=== PATIENT | male | born 1955 | race Caucasian/White ===

== ENCOUNTER 2022-03-18 06:06 | Day surgery (SDC) | payer MEDICARE, OTHER ==
[2022-03-18] MEDS ORDERED: Lactated Ringers 1,000 ML IV SCH (06:30)
[2022-03-18] MEDS ORDERED: Lactated Ringers 1,000 ML IV ONE (06:45)
[2022-03-18] MEDS ORDERED: Xylocaine-Mpf 2% 5 Ml Vial ONE (07:51)
[2022-03-18] MEDS ORDERED: Versed 2 MG/2 ML Injection ONE (07:51)
[2022-03-18] MEDS ORDERED: DIPRIVAN 200 MG/20 ML IV ONE (07:51)
[2022-03-18] MEDS ORDERED: Ephedrine Sulfate 50 MG/ML ONE ×2 (08:19→08:21)
--- NOTE | 2022-03-18 08:50 | OP ---
SURGERY DATE/TIME: 03/18/2022 0800 PREOPERATIVE DIAGNOSIS: Screening colonoscopy. POSTOPERATIVE DIAGNOSES: 1) Ascending colon polyp. 2) Diverticulosis. PROCEDURE: Colonoscopy. SURGEON: Ronn Isidro M.D. ANESTHESIA: MAC by Matthew Dominguez CRNA. ESTIMATED BLOOD LOSS: Minimal. SPECIMENS: Hot forceps polypectomy from ascending colon. DESCRIPTION OF PROCEDURE: After informed written consent was obtained, the patient was taken to the endoscopy suite. He was placed in left lateral decubitus position. Anesthesia was titrated to the desired level of consciousness. Digital rectal exam showed normal sphincter tone and no internal lesions. The scope was inserted into the rectum and sequentially the entire colonic mucosa was traversed. The level of cecum was reached and verified with direct visualization of the ileocecal valve. Upon withdrawal careful mucosal inspection revealed no gross abnormalities other than a small sessile polyp on a fold in the ascending colon this is grasped with the forceps cauterized and removed in its entirety. Two separate pieces were removed and sent for pathology testing. Upon further withdraw, there were a few scattered diverticula but no other mucosal abnormalities. Prior to withdrawal retroflexion showed no internal lesions. The scope was removed and the patient was transferred to the recovery room in good condition.
[2022-03-18 09:30] VITALS: BP 126/74; PULSE 63; O2SAT 94
== END 2022-03-18 09:32 | disposition home or self-care (01) ==
LOC: SDC 06:06
PROVIDERS: ATTEND Family Medicine
DX: Z12.11 Encounter for screening for malignant neoplasm of colon (principal); D12.2 Benign neoplasm of ascending colon; K57.30 Diverticulosis of large intestine without perforation or abscess without bleeding
CPT/HCPCS: J2250; J2704

== ENCOUNTER 2022-09-21 20:14 | Emergency (ER) | payer MEDICARE, OTHER ==
--- NOTE | 2022-09-21 20:39 | ERPHSYRPT ---
- History of Present Illness Time Seen by Provider: 09/21/22 20:35 Historian: patient Exam Limitations: no limitations Patient Subjective Stated Complaint: pt to ER with complaints of abdominal pain x 3 days. states he also thinks he has blood in his urine because his urine is an "orange" color. Triage Nursing Assessment: pt ambulatory to ER for abdominal pain. pt states he has had it for 3 days. pt with dry heaving and diarrhea. pt states its lower abdomen. denies urinary issues. pt last BM yesterday. pt A&Ox4. Physician History: This is a 67-year-old white male whose had history of appendectomy in the past, cholecystectomy and a gastric bypass procedure. He presents with worsening suprapubic abdominal pain the last 3 days. He has had associated intermittent vomiting as well as dry heaves and diarrhea. Patient has a history of gastroesophageal reflux disease. He denies chest pain. He denies shortness of breath. Timing/Duration: day(s), worse Activities at Onset: none Quality: sharpness, stabbing Abdominal Pain Onset Location: suprapubic Pain Radiation: no radiation Severity of Pain-Max: moderate Severity of Pain-Current: moderate Modifying Factors: Improves With: vomiting, other (Diarrhea) Associated Symptoms: diarrhea, fever/chills, loss of appetite, nausea, vomiting, No chest pain, No shortness of breath Previous symptoms: no prior history Allergies/Adverse Reactions: No Known Drug Allergies Allergy (Verified 09/21/22 20:35) Home Medications: PANTOPRAZOLE 40 mg Tablet [Protonix 40MG Tablet] 40 mg PO QAM 03/04/22 [History] Pramipexole Di-HCl 0.5 mg [Mirapex 0.5 MG Tablet] 0.5 mg PO HS 03/04/22 [History] Hx Tetanus, Diphtheria Vaccination/Date Given: Yes Hx Influenza Vaccination/Date Given: Yes Hx Pneumococcal Vaccination/Date Given: Yes Immunizations Up to Date: Yes Travel Risk - International Travel Have you traveled outside of the country in past 3 weeks: No - Coronavirus Screening Are you exhibiting any of the following symptoms?: Yes Symptoms: Vomiting/Diarrhea Close contact with a COVID-19 positive Pt in past 14-21 Days: No - Vaccine Status Have you recieved a Covid-19 vaccination: Yes Host Hostess: Moderna - Vaccination Dates Date of 2cond Vaccination (if applicable): unk - Review of Systems Constitutional: No Symptoms Eyes: No Symptoms Ears, Nose, & Throat: No Symptoms Respiratory: No Symptoms Cardiac: No Symptoms Abdominal/Gastrointestinal: Abdominal Pain, Nausea, Vomiting, Diarrhea, Appetite Changes, No Constipation Genitourinary Symptoms: No Symptoms Musculoskeletal: No Symptoms Skin: No Symptoms Neurological: No Symptoms Psychological: No Symptoms Endocrine: No Symptoms Hematologic/Lymphatic: No Symptoms Immunological/Allergic: No Symptoms All Other Systems: Reviewed and Negative - Past Medical History Pertinent Past Medical History: Yes Neurological History: No Pertinent History ENT History: No Pertinent History Cardiac History: No Pertinent History Respiratory History: No Pertinent History Endocrine Medical History: No Pertinent History Musculoskeletal History: No Pertinent History GI Medical History: GERD, Gallbladder Disease, Other History: No Pertinent History Psycho-Social History: No Pertinent History Male Reproductive Disorders: No Pertinent History - Past Surgical History Past Surgical History: Yes Neuro Surgical History: No Pertinent History Cardiac: No Pertinent History Respiratory: No Pertinent History Gastrointestinal: Appendectomy, Cholecystectomy, Other Genitourinary: No Pertinent History Musculoskeletal: Orthopedic Surgery Male Surgical History: No Pertinent History Other Surgical History: L foot arthrodesis, gastric bypass, hammertoe surgery L foot, - Social History Smoking Status: Light tobacco smoker How long have you smoked: cigar Exposure to second hand smoke: Yes Drug Use: none - Nursing Vital Signs Nursing Vital Signs: Initial Vital Signs Temperature 98.6 F 09/21/22 20:26 Pulse Rate 81 09/21/22 20:26 Respiratory Rate 18 09/21/22 20:26 Blood Pressure 140/76 09/21/22 20:26 O2 Sat by Pulse Oximetry 97 09/21/22 20:26 Pain Scale Pain Intensity 8 - Physical Exam General Appearance: mild distress, alert, anxiety Eye Exam: PERRL/EOMI, eyes nml inspection Ears, Nose, Throat Exam: normal ENT inspection, moist mucous membranes Neck Exam: normal inspection, non-tender, supple, full range of motion Respiratory Exam: normal breath sounds, lungs clear, airway intact, No chest tenderness, No respiratory distress Cardiovascular Exam: regular rate/rhythm, normal heart sounds, normal peripheral pulses Gastrointestinal/Abdomen Exam: soft, normal bowel sounds, tenderness (Prepubic region), guarding (Suprapubic region to palpation), rebound (Prepubic region to palpation) Back Exam: normal inspection, normal range of motion, No CVA tenderness, No ve rtebral tenderness Extremity Exam: normal inspection, normal range of motion, pelvis stable Neurologic Exam: alert, oriented x 3, cooperative, personnel specialist II-XII nml as tested, normal mood/affect, nml cerebellar function, nml station & gait, sensation nml Skin Exam: normal color, warm, dry Lymphatic Exam: No adenopathy SpO2 Interpretation: normal SpO2: 97 O2 Delivery: Room Air - Course Nursing assessment & vital signs reviewed: Yes Ordered Tests: Active Orders 24 hr Category Date Time Status IV Insertion STAT Care 09/21/22 20:47 Active ABDOMEN AND PELVIS W/0 CONTRAS [CT] Stat Exams 09/21/22 20:47 Taken AMYLASE Stat Lab 09/21/22 20:55 Completed CBC W DIFF Stat Lab 09/21/22 20:55 Completed CMP Stat Lab 09/21/22 20:55 Completed CULTURE,URINE Stat Lab 09/21/22 20:50 Received LIPASE Stat Lab 09/21/22 20:55 Completed Lactic Acid Stat Lab 09/21/22 20:47 Completed UA W/RFX UR CULTURE Stat Lab 09/21/22 20:50 Completed Medication Summary Generic Name Dose Route Start Last Admin Trade Name Freq PRN Reason Stop Dose Admin Levofloxacin/Dextrose 500 mg in 100 mls @ 100 mls/hr 09/21/22 22:22 Levofloxacin 500mg/100ml D5w IV 09/21/22 23:21 STAT STA Metronidazole 500 mg in 100 mls @ 200 mls/hr 09/21/22 22:23 Flagyl 500 Mg Ivpb IV 09/21/22 22:52 STAT STA Sodium Chloride 1,000 mls @ 999 mls/hr 09/21/22 22:24 Sodium Chloride 0.9% 1000 Ml IV 09/21/22 23:24 .Q1H1M STA Discontinued Medications Generic Name Dose Route Start Last Admin Trade Name Freq PRN Reason Stop Dose Admin Hydromorphone HCl 1 mg 09/21/22 20:47 09/21/22 21:16 Hydromorphone 1 Mg/1ml Inj 1 Mg/Ml Syringe IV 09/21/22 20:48 1 mg STAT ONE Administration Hydromorphone HCl Confirm 09/21/22 20:53 Hydromorphone 1 Mg/1ml Inj 1 Mg/Ml Syringe Administered 09/21/22 20:54 Dose 1 mg .ROUTE .STK-MED ONE Sodium Chloride 1,000 mls @ 999 mls/hr 09/21/22 20:47 09/21/22 22:24 Sodium Chloride 0.9% 1000 Ml IV 09/21/22 21:47 Infused .Q1H1M STA Infusion Sodium Chloride Confirm 09/21/22 20:53 Sodium Chloride 0.9% 1000 Ml Administered 09/21/22 20:54 Dose 1,000 mls @ ud .ROUTE .STK-MED ONE Ketorolac Tromethamine 30 mg 09/21/22 21:41 09/21/22 21:44 Ketorolac Tromethamine 30 Mg/Ml Inj IV 09/21/22 21:42 30 mg STAT ONE Administration Ketorolac Tromethamine Confirm 09/21/22 21:43 Ketorolac Tromethamine 30 Mg/Ml Inj Administered 09/21/22 21:44 Dose 30 mg .ROUTE .STK-MED ONE Morphine Sulfate 4 mg 09/21/22 22:22 Morphine Sulfate 4 Mg/Ml Injection IV 09/21/22 22:23 STAT ONE Ondansetron HCl 4 mg 09/21/22 20:47 09/21/22 21:09 Ondansetron Hcl 4 Mg/2 Ml Vial IV 09/21/22 20:48 4 mg STAT ONE Administration Ondansetron HCl Confirm 09/21/22 20:52 Ondansetron Hcl 4 Mg/2 Ml Vial Administered 09/21/22 20:53 Dose 4 mg .ROUTE .STK-MED ONE Pantoprazole Sodium 40 mg 09/21/22 20:47 09/21/22 21:09 Pantoprazole 40 Mg Vial IV 09/21/22 20:48 40 mg STAT ONE Administration Pantoprazole Sodium Confirm 09/21/22 20:52 Pantoprazole 40 Mg Vial Administered 09/21/22 20:53 Dose 40 mg IV .STK-MED ONE Prochlorperazine Edisylate 5 mg 09/21/22 22:22 Prochlorperazine Edisylate 10 Mg/2 Ml Vial IV 09/21/22 22:23 STAT ONE Lab/Rad Data: Laboratory Result Diagrams 09/21/22 20:55 09/21/22 20:55 Laboratory Results 09/21/22 09/21/22 09/21/22 Range/Units 20:55 20:55 20:50 WBC 7.0 (4.0-10.5) x10^3/uL RBC 5.05 (4.1-5.6) x10^6/uL Hgb 14.2 (12.5-18.0) g/dL Hct 44.6 (42-50) % MCV 88.3 (78-100) fL MCH 28.1 (26-32) pg MCHC 31.8 L (32-36) g/dL RDW 12.8 (11.5-14.0) % Plt Count 174 (150-450) x10^3/uL MPV 10.0 (7.5-11.0) fL Gran % 69.9 H (36.0-66.0) % Immature Gran % (Auto) 0.1 (0.00-0.4) % Nucleat RBC Rel Count 0.0 (0.00-0.1) % Eos # (Auto) 0.07 (0-0.5) x10^3/uL Immature Gran # (Auto) 0.01 (0.00-0.03) x10^3u/L Absolute Lymphs (auto) 1.29 (1.0-4.6) x10^3/uL Absolute Monos (auto) 0.67 (0.0-1.3) x10^3/uL Absolute Nucleated RBC 0.00 (0.00-0.01) x10^3u/L Lymphocytes % 18.5 L (24.0-44.0) % Monocytes % 9.6 (0.0-12.0) % Eosinophils % 1.0 (0.00-5.0) % Basophils % 0.9 (0.0-0.4) % Absolute Granulocytes 4.89 (1.4-6.9) x10^3/uL Basophils # 0.06 (0-0.4) x10^3/uL Sodium 139 (137-145) mmol/L Potassium 3.8 (3.5-5.1) mmol/L Chloride 103 (98-107) mmol/L Carbon Dioxide 27 (22-30) mmol/L Anion Gap 13.8 (5-15) MEQ/L BUN 24 H (9-20) mg/dL Creatinine 1.01 (0.66-1.25) mg/dL Estimated GFR > 60.0 ML/MIN Glucose 118 H (74-106) mg/dL Lactic Acid (0.4-2.0) Calcium 8.7 (8.4-10.2) mg/dL Total Bilirubin 0.90 (0.2-1.3) mg/dL AST 27 (17-59) U/L ALT 16 (0-50) U/L Alkaline Phosphatase 90 (38-126) U/L Serum Total Protein 7.0 (6.3-8.2) g/dL Albumin 4.0 (3.5-5.0) g/dL Amylase 97 (30-110) U/L Lipase 82 (23-300) U/L Urine Color Yellow (Yellow) Urine Appearance Clear (Clear) Urine pH 6.0 (4.6-8.0) Ur Specific Amma 1.015 (1.005-1.030) Urine Protein Negative (Negative) Urine Glucose (UA) Negative (Negative) mg/dL Urine Ketones Negative (Negative) Urine Blood Negative (Negative) Urine Nitrite Negative (Negative) Urine Bilirubin Negative (Negative) Urine Urobilinogen 1.0 A (0.2) mg/dL Ur Leukocyte Esterase Moderate A (Negative) U Hyaline Cast (Auto) NONE SEEN (0-2) /LPF Urine Microscopic RBC 0-2 (0-5) /HPF Urine Microscopic WBC 21-50 A (0-5) /HPF Ur Epithelial Cells None Seen (None Seen) /HPF Urine Bacteria Moderate A (None Seen) /HPF Urine Culture Reflexed YES (NO) 09/21/22 Range/Units 20:47 WBC (4.0-10.5) x10^3/uL RBC (4.1-5.6) x10^6/uL Hgb (12.5-18.0) g/dL Hct (42-50) % MCV (78-100) fL MCH (26-32) pg MCHC (32-36) g/dL RDW (11.5-14.0) % Plt Count (150-450) x10^3/uL MPV (7.5-11.0) fL Gran % (36.0-66.0) % Immature Gran % (Auto) (0.00-0.4) % Nucleat RBC Rel Count (0.00-0.1) % Eos # (Auto) (0-0.5) x10^3/uL Immature Gran # (Auto) (0.00-0.03) x10^3u/L Absolute Lymphs (auto) (1.0-4.6) x10^3/uL Absolute Monos (auto) (0.0-1.3) x10^3/uL Absolute Nucleated RBC (0.00-0.01) x10^3u/L Lymphocytes % (24.0-44.0) % Monocytes % (0.0-12.0) % Eosinophils % (0.00-5.0) % Basophils % (0.0-0.4) % Absolute Granulocytes (1.4-6.9) x10^3/uL Basophils # (0-0.4) x10^3/uL Sodium (137-145) mmol/L Potassium (3.5-5.1) mmol/L Chloride (98-107) mmol/L Carbon Dioxide (22-30) mmol/L Anion Gap (5-15) MEQ/L BUN (9-20) mg/dL Creatinine (0.66-1.25) mg/dL Estimated GFR ML/MIN Glucose (74-106) mg/dL Lactic Acid 1.7 (0.4-2.0) Calcium (8.4-10.2) mg/dL Total Bilirubin (0.2-1.3) mg/dL AST (17-59) U/L ALT (0-50) U/L Alkaline Phosphatase (38-126) U/L Serum Total Protein (6.3-8.2) g/dL Albumin (3.5-5.0) g/dL Amylase (30-110) U/L Lipase (23-300) U/L Urine Color (Yellow) Urine Appearance (Clear) Urine pH (4.6-8.0) Ur Specific Amma (1.005-1.030) Urine Protein (Negative) Urine Glucose (UA) (Negative) mg/dL Urine Ketones (Negative) Urine Blood (Negative) Urine Nitrite (Negative) Urine Bilirubin (Negative) Urine Urobilinogen (0.2) mg/dL Ur Leukocyte Esterase (Negative) U Hyaline Cast (Auto) (0-2) /LPF Urine Microscopic RBC (0-5) /HPF Urine Microscopic WBC (0-5) /HPF Ur Epithelial Cells (None Seen) /HPF Urine Bacteria (None Seen) /HPF Urine Culture Reflexed (NO) - Progress Progress: improved, pain not gone completely, re-examined Progress Note: 09/21/22 22:28 CAT scan of the abdomen pelvis without contrast shows moderate abdominal and peritoneal mesenteric stranding either adenitis versus fibrosing mesenteritis. Doubt bowel ischemia. There is no evidence of bowel wall thickening or pneumatosis intestinalis. I reviewed this radiologist report. This patient's medical issue is 1 of moderate complexity. The level of complexity and the work-up performed is based on review of the patient's past medical history, medication list, drug allergy list, history of present illness and findings on physical examination. The work-up performed was placement of an intravenous line, infusion of 2 L of intravenous normal saline solution, obta ining a CBC, CMP, amylase, lipase, urinalysis studies. We also obtained lactic acid level. In addition, I ordered a CAT scan of the abdomen pelvis without contrast. The above-stated findings are noted. I reviewed all the results of the work-up. The patient has at least a moderate urinary tract infection and this can account for much of his symptoms. In addition, he does have some intra abdominal inflammation without evidence of diverticulitis or colitis or bowel ischemia per radiology report. The patient will receive intravenous narcotics, intravenous antiemetics, intravenous antibiotics. I also gave the patient intravenous Protonix. The discharge plan is to transmit a prescription for [place] 5/325, Cipro and Flagyl as well as Phenergan prescription to his pharmacy. Patient is to drop his diet back to clear liquid diet and advance his diet slowly. We will provide him with 2 Percocet 5/325 tablets for take-home tonight. This was discussed in detail with the patient. Counseled pt/family regarding: lab results, diagnosis, need for follow-up, rad results Medical Desision Making - Discussion of managment Reviewed:: Test results Agreed on:: Treatment plan, need for follow-up - Diagnostic Testing Diagnostic test were ordered, analyzed, and reviewed by me: Yes Radiological Interpretation: Reviewed by me - Risk of complications The pt has a mod risk of morbidity or mortality based on: Need for prescription drug management - Departure Departure Disposition: Home Clinical Impression: Mesenteric adenitis, Urinary tract infection Condition: Stable Critical Care Time: No Referrals: IZZY HART, MANAGER [employer]PLICATION [Primary Care Provider] - Follow up/PCP as directed Additional Instructions: Drink plenty of clear liquids. Do not advance her diet to you are taking clear liquids well. Take your antibiotics as prescribed. Return to the emergency department in 24 hours to be reevaluated. Return to the emergency department sooner if symptoms worsen. Prescriptions: Hydrocodone/APAP 5/325 [[place] 5/325 mg] 1 each PO Q8H PRN PRN #6 tablet MDD 3 PRN Reason: Pain Promethazine HCl 25 mg [Phenergan 25 mg] 25 mg PO Q8H PRN PRN #10 tablet PRN Reason: Nausea/Vomiting Ciprofloxacin [Cipro 500 MG] 500 mg PO BID #14 tablet Metronidazole 500 mg [Flagyl 500 MG] 500 mg PO TID #21 tablet
[2022-09-21] MEDS ORDERED: Zofran 4 MG/2 ML VIAL IV ONE (20:47)
[2022-09-21] MEDS ORDERED: PROTONIX 40 MG IV IV ONE ×2 (20:47→20:52)
[2022-09-21] MEDS ORDERED: Sodium Chloride 0.9% 1000 ML 1,000 ML IV STA ×2 (20:47→22:24)
[2022-09-21] MEDS ORDERED: Hydromorphone 1 mg/ml Injection IV ONE (20:47)
[2022-09-21] MEDS ORDERED: Zofran 4 MG/2 ML VIAL ONE (20:52)
[2022-09-21] MEDS ORDERED: Hydromorphone 1 mg/ml Injection ONE (20:53)
[2022-09-21] MEDS ORDERED: Sodium Chloride 0.9% 1000 ML 1,000 ML ONE ×2 (20:53→22:27)
[2022-09-21 21:27] LABS: Absolute Neutrophil Ct (ANC) 4.89 x10^3/uL (1.4-6.9); BASOPHIL % 0.9 % (0.0-0.4); Basophil (Absolute #) 0.06 x10^3/uL (0-0.4); Eosinophil (Absolute #) 0.07 x10^3/uL (0-0.5); Hematocrit 44.6 % (42-50); Hemoglobin 14.2 g/dL (12.5-18.0); IMMATURE GRAN # 0.01 x10^3u/L (0.00-0.03); IMMATURE GRAN % 0.1 % (0.00-0.4); Lymphocyte (Absolute #) 1.29 x10^3/uL (1.0-4.6); Lymphocytes % 18.5 % (24.0-44.0); Mean Cell Volume 88.3 fL (78-100); Mean Corpuscular Hemoglobin 28.1 pg (26-32); Mean Corpuscular Hgb Concent. 31.8 g/dL (32-36); Monocyte (Absolute #) 0.67 x10^3/uL (0.0-1.3); Monocytes % 9.6 % (0.0-12.0); Neutrophil % 69.9 % (36.0-66.0); Platelet Count 174 x10^3/uL (150-450); Red Blood Count 5.05 x10^6/uL (4.1-5.6); Red Cell Distribution Width 12.8 % (11.5-14.0)
[2022-09-21 21:28] LABS: Appearance Clear (Clear); Bacteria Moderate /HPF (None Seen); Bilirubin Negative (Negative); Blood Negative (Negative); Epithelial Cells None Seen /HPF (None Seen); Glucose, Urine Negative (Negative); Hyaline Casts NONE SEEN /LPF (0-2); Ketones Negative (Negative); Leukocyte Esterase Moderate (Negative); Nitrite Negative (Negative); Protein,Urine Dip Negative (Negative); RBC 0-2 /HPF (0-5); Specific Gravity 1.015 (1.005-1.030); WBC 21-50 /HPF (0-5)
[2022-09-21 21:30] LABS: ADD URINE CULTURE? YES (NO)
[2022-09-21 21:37] LABS: ALKALINE PHOSPHATASE 90 U/L (38-126); AMYLASE 97 U/L (30-110); ANION GAP 13.8 MEQ/L (5-15); BLOOD UREA NITROGEN 24 mg/dL (9-20); CHLORIDE 103 mmol/L (98-107); Calcium 8.7 mg/dL (8.4-10.2); Carbon Dioxide 27 mmol/L (22-30); Creatinine 1 1.01 mg/dL (0.66-1.25); EST GLOMERULAR FILTRATION RATE > 60.0 ML/MIN; Glucose 118 mg/dL (74-106); LIPASE 82 U/L (23-300); Potassium 3.8 mmol/L (3.5-5.1); SGOT/AST 27 U/L (17-59); SGPT/ALT 16 U/L (0-50); SODIUM 139 mmol/L (137-145)
[2022-09-21] MEDS ORDERED: TORAdol 30 mg Injection IV ONE (21:41)
[2022-09-21] MEDS ORDERED: TORAdol 30 mg Injection ONE (21:43)
[2022-09-21] MEDS ORDERED: MORPHINE SULFATE 4 MG INJ IV ONE (22:22)
[2022-09-21] MEDS ORDERED: Compazine 10 MG/2 ML IV ONE (22:22)
[2022-09-21] MEDS ORDERED: Levofloxacin 500MG/100ML D5W 500 MG/100 ML BAG IV STA (22:22)
[2022-09-21] MEDS ORDERED: FLAGYL 500 MG IVPB 500 MG/100 ML BAG IV STA (22:23)
[2022-09-21] MEDS ORDERED: MORPHINE SULFATE 4 MG INJ ONE (22:26)
[2022-09-21] MEDS ORDERED: FLAGYL 500 MG IVPB 500 MG/100 ML BAG IV ONE (22:27)
[2022-09-21] MEDS ORDERED: Compazine 10 MG/2 ML ONE (22:27)
[2022-09-21] MEDS ORDERED: Levofloxacin 500MG/100ML D5W 500 MG/100 ML BAG IV ONE (22:52)
[2022-09-21] MEDS ORDERED: PERCOCET TABLET 5/325MG PO STA (23:37)
[2022-09-21] MEDS ORDERED: PERCOCET TABLET 5/325MG ONE (23:41)
[2022-09-22 00:06] VITALS: BP 115/50; PULSE 62; O2SAT 95
--- NOTE | 2022-09-22 08:48 | XRAY ---
Indication: Suprapubic pain. Diarrhea. Multiple contiguous axial images obtained through the abdomen and pelvis without contrast. Comparison: None Lung bases are clear. Heart not enlarged. Small hiatal hernia. Noncontrasted stomach and bowel loops appear nonobstructed with normal appendix. Mild scattered descending/sigmoid diverticulosis without diverticulitis. No abnormal bowel wall thickening or pneumatosis. Small subcentimeter mesenteric nodes with moderate abdominal/pelvic mesenteric stranding may represent mesenteric adenitis versus fibrosing mesenteritis versus mesenteric edema. Liver appears small, spleen is enlarged measuring 12.7 cm, and left upper quadrant splenorenal varices may represent cirrhosis with portal hypertension. No free fluid/air. A few bilateral renal cysts. Previous cholecystectomy. Remaining liver, pancreas, spleen, adrenal glands, kidneys, ureters, and bladder are unremarkable for noncontrast exam. Mild scattered aortoiliac calcifications without AAA. Osseous structures intact with osteopenia, mild/moderate degenerative changes throughout the thoracolumbar spine,1.5 cm L5 round sclerotic lesion favoring bone island, and mild degenerative changes both hips. Impression: 1. Diffuse abdominal/pelvic mesenteric stranding with a few small mesenteric nodes. Partial differential offered includes mesenteric adenitis versus fibrosing mesenteritis. Mesenteric edema also offered for clinical consideration as there are features for cirrhosis, splenomegaly, and portal hypertension. No free fluid/air. 2. Chronic findings including hiatal hernia, bilateral renal cysts, arteriosclerotic disease, chronic bony findings.
== END 2022-09-22 00:10 | disposition home or self-care (01) ==
LOC: ED 20:14
DX: I88.0 Nonspecific mesenteric lymphadenitis (principal); N39.0 Urinary tract infection, site not specified; R10.2 Pelvic and perineal pain; R11.2 Nausea with vomiting, unspecified; R19.7 Diarrhea, unspecified; Z79.891 Long term (current) use of opiate analgesic; Z79.899 Other long term (current) drug therapy; Z72.0 Tobacco use
CPT/HCPCS: 36000; 36415; 74176; 80053; 81001; 82150; 83605; 83690; 85025; 87086; 96360; 96365; 96367; 96374; 96375; 96376; 99284; J1170; J1885; J1956; J2270; J2405; A9270-GY